=== PATIENT | female | born 1965 | race Caucasian/White ===

== ENCOUNTER 2018-11-08 10:00 | Emergency (ER) | payer BC ==
[2018-11-08 10:08] VITALS: BP 135/74
[2018-11-08] MEDS ORDERED: POLYMYXIN B SULFATE/TMP OPH SOLN (10 ML/ER DISP) OS PRN (10:17)
--- NOTE | 2018-11-08 10:17 | ER Document Report ---
HPI - HPI Time Seen by Provider: 11/08/18 10:10 Pain Level: 2 Context: Patient is a 52-year-old female who presents to the emergency department with a chief complaint of left eye redness and purulent discharge from the eye. She had eye redness yesterday and noticed the purulent drainage this morning. Patient denies any past medical history. She does not take any medications. Denies any visual disturbances. Patient states that she has had a cold the last few days. Patient is visiting from [place]. - CONSTITUTIONAL Constitutional: DENIES: Fever, Chills - EENT EENT: REPORTS: Nasal Drainage-Clear, Eye problems - L purulent drainage/red. DENIES: Sore Throat, Ear Pain, Nasal Drainage-Purulent, Congestion - NEURO Neurology: DENIES: Headache - CARDIOVASCULAR Cardiovascular: DENIES: Chest pain - RESPIRATORY Respiratory: DENIES: Trouble Breathing - GASTROINTESTINAL Gastrointestinal: DENIES: Abdominal Pain, Nausea - URINARY Urinary: DENIES: Dysuria - REPRODUCTIVE Reproductive: DENIES: : - MUSCULOSKELETAL Musculoskeletal: DENIES: Extremity pain - DERM Skin Color: Normal Skin Problems: None Past Medical History - General Information source: Patient - Social History Smoking Status: Unknown if Ever Smoked Frequency of alcohol use: None Drug Abuse: None Family History: Reviewed & Not Pertinent Patient has suicidal ideation: No Patient has homicidal ideation: No Renal/ Medical History: Denies: Hx Peritoneal Dialysis Vertical Provider Document - CONSTITUTIONAL Agree With Documented VS: Yes Exam Limitations: No Limitations General Appearance: No Apparent Distress - INFECTION CONTROL TRAVEL OUTSIDE OF THE [place] IN LAST 30 DAYS: No - HEENT HEENT: Atraumatic, Conjuctival Injection - With purulent drainage, Normocephalic, PERRLA. negative: Pharyngeal Exudate, Pharyngeal Erythema, Tympanic Membrane Red, Tympanic Membrane Bulging - NECK Neck: Normal Inspection - RESPIRATORY Respiratory: Breath Sounds Normal, No Respiratory Distress - CARDIOVASCULAR Cardiovascular: Regular Rate, Regular Rhythm - MUSCULOSKELETAL/EXTREMETIES Musculoskeletal/Extremeties: FROM - NEURO Level of Consciousness: Awake, Alert, Appropriate - DERM Integumentary: Warm, Dry, No Rash Course - Re-evaluation Re-evalutation: 11/08/18 10:17 Patient presents with symptoms most consistent with a viral conjunctivitis. Left eye involvement with purulent drainage. Patient does also have associated upper respiratory symptoms again suggesting a viral etiology of the conjunctivitis. Patient is otherwise very well in appearance, no acute distress, vitals within normal limits. I have discussed with the patient they will be discharged with a prescription for Polytrim eyedrops. Patient is in agreement with this plan and will follow up with primary care provider in [place]. - Vital Signs Vital signs: Temp Pulse Resp BP Pulse Ox 97.7 F 73 15 135/74 H 97 11/08/18 10:07 11/08/18 10:07 11/08/18 10:07 11/08/18 10:07 11/08/18 10:07 Discharge - Discharge Clinical Impression: Conjunctivitis Qualifiers: Conjunctivitis type: acute Acute conjunctivitis type: unspecified Laterality: left Qualified Code(s): H10.32 - Unspecified acute conjunctivitis, left eye Condition: Stable Disposition: HOME, SELF-CARE Instructions: Conjunctivitis ([facility]), Eyedrop Use ([facility]) Additional Instructions: You were seen today in the emergency department for a red eye and drainage from that eye. Please place 1 drop to your left eye 4 times a day for 7 days. Follow-up with your primary care provider when you return to [place]. Have a safe trip back home.
== END 2018-11-08 10:27 | disposition home or self-care (01) ==
LOC: ER 10:00
DX: H10.32 Unspecified acute conjunctivitis, left eye (principal); R09.89 Other specified symptoms and signs involving the circulatory and respiratory systems
CPT/HCPCS: 99283; J3490